=== PATIENT | male | born 1980 | race Caucasian/White ===

== ENCOUNTER 2022-07-04 18:09 | Emergency (ER) | payer MEDICAID ==
[~2022-07-04] VITALS: Ht 170.2 cm; Wt 90.9 kg
--- NOTE | 2022-07-04 19:01 | NUR ---
Pt moved to room 15
--- NOTE | 2022-07-04 19:18 | NUR ---
pt to ct
[2022-07-04 19:26] LABS: BASOPHILS # (AUTO) 0.1 X10'3 (0-0.2); BASOPHILS % (AUTO) 0.7 % (0-1); EOSINOPHILS # (AUTO) 0.2 X10'3 (0-0.9); EOSINOPHILS % (AUTO) 2.1 % (0-6); HEMATOCRIT 46.6 % (42.0-52.0); HEMOGLOBIN 15.8 g/dl (14.0-17.9); LYMPHOCYTES # (AUTO) 4.4 X10'3 (1.1-4.8); LYMPHOCYTES % (AUTO) 47.5 % (21-51); MEAN CORPUSCULAR HEMOGLOBIN 30.1 PG (27.0-31.0); MEAN CORPUSCULAR VOLUME 88.5 FL (78-98); MEAN PLATELET VOLUME 7.4 FL (7.4-10.4); MONOCYTES # (AUTO) 0.8 X10'3 (0-0.9); MONOCYTES % (AUTO) 8.5 % (2-12); NEUTROPHILS # (AUTO) 3.8 X10'3 (1.8-7.7); NEUTROPHILS % (AUTO) 41.2 % (42-75); PLATELET COUNT 187 X10'3 (140-440); RED BLOOD COUNT 5.27 X10'6 (4.70-6.10); RED CELL DISTRIBUTION WIDTH 13.5 % (11.5-14.5); WHITE BLOOD COUNT 9.2 X10'3 (4.5-11.0)
[2022-07-04] MEDS ORDERED: meclizine 12.5mg tablet PO ONE (19:30)
[2022-07-04] MEDS ORDERED: hyDRALAzine 10mg tablet PO ONE (19:30)
[2022-07-04] MEDS ORDERED: hyDRALAzine 10mg tablet PO SCH (19:30)
[2022-07-04] MEDS ORDERED: lisinopril 10 MG tablet PO ONE (19:30)
[2022-07-04] MEDS ORDERED: cloNIDine 0.1 MG/24 HOUR patch (7 day patch) TD ONE (19:35)
[2022-07-04] MEDS ORDERED: LISI40TA13 PO (19:36)
[2022-07-04 19:37] LABS: ALANINE AMINOTRANSFERASE 35 U/L (12-78); ALBUMIN 4.1 G/DL (3.4-5.0); ALKALINE PHOSPHATASE 71 IU/L (46-116); ANION GAP 7 (8-16); ASPARTATE AMINO TRANSFERASE 25 U/L (10-37); BILIRUBIN,TOTAL 0.4 MG/DL (0.1-1.0); BLOOD UREA NITROGEN 14 MG/DL (7-18); BUN/CREATININE RATIO 15.6 (5.4-32.0); CHLORIDE 103 MMOL/L (99-107); GLUCOSE 137 MG/DL (70-104); POTASSIUM 3.7 MMOL/L (3.5-5.1); SODIUM 141 MMOL/L (135-145); TOTAL CARBON DIOXIDE 31.3 MMOL/L (24-32); TOTAL PROTEIN 8.1 G/DL (6.4-8.2); eGFR > 90 ML/MIN
[2022-07-04 19:39] LABS: ETHANOL < 0.010 GM/DL (0.0-0.010)
[2022-07-04 19:58] LABS: CLARITY,URINE CLEAR (Clear); COLOR,URINE YELLOW (Yellow); GLUCOSE, URINE NEGATIVE (Neg); KETONES,URINE NEGATIVE (Neg); LEUKOCYTE ESTERASE ,URINE NEGATIVE (Neg); NITRITES, URINE NEGATIVE (Neg); OCCULT BLOOD,URINE NEGATIVE (Neg); PROTEIN,URINE TRACE mg/dl (Neg); UROBILINOGEN,URINE 0.2 E.U/dL (0.2-1.0)
[2022-07-04 20:03] LABS: UA COLLECTION TYPE CLN CATCH MIDSTREAM
[2022-07-04 20:13] LABS: URINE AMPHETAMINE SCREEN POSITIVE (Neg); URINE BARBITUATE SCREEN NEGATIVE (Neg); URINE BENZODIAZEPINES SCREEN NEGATIVE (Neg); URINE COCAINE SCREEN NEGATIVE (Neg); URINE METHADONE SCREEN POSITIVE (Neg); URINE OPIATE SCREEN NEGATIVE (Neg); URINE PHENCYCLIDINE SCREEN NEGATIVE (Neg)
[2022-07-04 20:22] LABS: AMORPHOUS PHOSPHATES 2+; BACTERIA,URINE NONE SEEN /HPF (Neg); MUCUS STRANDS NONE SEEN /LPF (Neg); RBC,URINE NONE SEEN /HPF (0-2); SQUAMOUS EPITHELIAL CELL,UR NONE SEEN /LPF (FEW); WBC,URINE NONE SEEN /HPF (0-4)
[2022-07-04 20:23] LABS: FINE GRANULAR CAST 0-3 /LPF (NEGATIVE)
[2022-07-04 20:24] VITALS: BP 166/100
== END 2022-07-04 20:27 ==
LOC: ER 18:10
DX: R11.0 Nausea (principal); R53.83 Other fatigue; I10 Essential (primary) hypertension; F17.200 Nicotine dependence, unspecified, uncomplicated; F15.90 Other stimulant use, unspecified, uncomplicated; Z86.69 Personal history of other diseases of the nervous system and sense organs; Z56.0 Unemployment, unspecified; Z79.899 Other long term (current) drug therapy
CPT/HCPCS: 36415; 70450; 80053; 80305; 80320; 81001; 82948; 85025; 93005; 99285; J8597

== ENCOUNTER 2023-07-15 01:41 | Emergency (ER) | payer MEDICAID ==
[~2023-07-15] VITALS: Ht 170.2 cm; Wt 104.5 kg
[2023-07-15 01:56] VITALS: TEMP 98.3
[2023-07-15] MEDS: amLODIPine 5mg tablet PO ONE (02:29)
[2023-07-15] MEDS: hydrALAZINE 25 MG tablet PO ONE (02:30)
[2023-07-15 03:14] VITALS: BP 180/106; PULSE 81; RESP 14; O2SAT 99
== END 2023-07-15 03:30 | disposition home or self-care (01) ==
LOC: ER 01:42
DX: F11.99 Opioid use, unspecified with unspecified opioid-induced disorder (principal); I10 Essential (primary) hypertension
CPT/HCPCS: 99283

== ENCOUNTER 2023-12-14 07:38 | Emergency (ER) | payer MEDICAID ==
[~2023-12-14] VITALS: Ht 170.2 cm; Wt 89.5 kg
[2023-12-14] MEDS: TETanus/Pertussis (Acell)/Diphther VAC/PF (Tdap-Adult) 0.5ml syringe IMVAC ONE (08:14)
[2023-12-14] MEDS: LIDOcaine 1% W/epiNEPHrine 1:100,000 20ml vial SQ ONE (08:40)
[2023-12-14 08:59] VITALS: BP 160/80; PULSE 75; RESP 15; O2SAT 97
[2023-12-14 09:04] VITALS: TEMP 97.8
== END 2023-12-14 09:04 | disposition home or self-care (01) ==
LOC: ER 07:39
DX: S61.211A Laceration without foreign body of left index finger without damage to nail, initial encounter (principal); Z56.0 Unemployment, unspecified; I10 Essential (primary) hypertension; F15.90 Other stimulant use, unspecified, uncomplicated; X58.XXXA Exposure to other specified factors, initial encounter; Y93.89 Activity, other specified; Y92.89 Other specified places as the place of occurrence of the external cause; Y99.8 Other external cause status
CPT/HCPCS: 12001; 90471; 90715; 99283; A6402; A6449

== ENCOUNTER 2023-12-16 02:41 | Emergency (ER) | payer MEDICAID ==
[~2023-12-16] VITALS: Ht 170.2 cm; Wt 81.8 kg
[2023-12-16 02:45] VITALS: TEMP 97.2
[2023-12-16] MEDS: DOXYCYCLINE 100MG CAPSULE PO STA (04:19)
[2023-12-16] MEDS: ceFAZolin 1gm IM kit IM ONE (04:19)
[2023-12-16] MEDS: ondansetron 4mg rapidly disintigrating tab PO ONE (04:20)
[2023-12-16 04:21] VITALS: BP 140/88; PULSE 93; O2SAT 98
[2023-12-16] MEDS: HYDROcodone/acetaminophen 10/325mg tab PO ONE (04:27)
[2023-12-16] MEDS ORDERED: CEPH-585 PO (04:39)
[2023-12-16] MEDS ORDERED: DOXY-356 PO (04:39)
[2023-12-16 04:48] VITALS: RESP 15
== END 2023-12-16 04:57 | disposition home or self-care (01) ==
LOC: ER 02:42
DX: L03.114 Cellulitis of left upper limb (principal); F15.90 Other stimulant use, unspecified, uncomplicated; I10 Essential (primary) hypertension
CPT/HCPCS: 73130; 96372; 99284; J0690

== ENCOUNTER 2024-05-24 09:56 | Emergency (ER) | payer MEDICAID ==
[~2024-05-24] VITALS: Ht 172.7 cm; Wt 95.0 kg
[2024-05-24] MEDS ORDERED: PROM25TA14 PO (12:08)
[2024-05-24] MEDS ORDERED: AZIT250T89 PO (12:08)
[2024-05-24] MEDS ORDERED: PRED20TA PO (12:08)
[2024-05-24 12:16] VITALS: BP 148/86; PULSE 80; RESP 16; TEMP 98.8; O2SAT 98
== END 2024-05-24 12:18 | disposition home or self-care (01) ==
LOC: ER 09:57
DX: J22 Unspecified acute lower respiratory infection (principal); I10 Essential (primary) hypertension; F15.90 Other stimulant use, unspecified, uncomplicated; Z56.0 Unemployment, unspecified
CPT/HCPCS: 71045; 99283

== ENCOUNTER 2025-03-01 19:44 | Emergency (ER) | payer MEDICAID ==
[~2025-03-01] VITALS: Ht 170.2 cm; Wt 98.0 kg
[2025-03-01 20:06] VITALS: PULSE 88; RESP 15; TEMP 96.8; O2SAT 99
[2025-03-01 20:48] VITALS: BP 175/89
--- NOTE | 2025-03-01 21:14 | Physician Documentation ---
History of Present Illness ~ Chief Complaint: Medical Clearance Stated Complaint: MED CLEARENCE Time Seen by MD: 19:54 Primary Medical Doctor: NONE HPI 44-year-old male that presents to the emergency department in custody of [facility]. Patient has presented for medical clearance so that he can be incarcerated. Patient reports that he last used methamphetamine a pproximately 24 hours ago and he smokes fentanyl daily. Patient reports that he has been diagnosed with hypertension previously. [facility] staff [facility] the [facility] were concerned because his patient's blood pressures greater than 180. Patient's blood pressure here in the emergency department and still approximately 180 patient is asymptomatic and refusing any interventions. Patient was offered clonidine reduce his blood pressure. Patient is refusing that at this time. Patient's vital signs are otherwise appropriate patient is without symptoms at this time. Patient is medically cleared to be incarcerated with [facility]. Tetanus within 5 years?: Yes Medication Reconciliation Allergies: Coded Allergies: No Known Allergies (Unverified , 03/01/25) Past Medical History Past Medical History: *EQUITIES TRADER*, Seizures, Hypertension Past Surgical History: noncontributory Drug Use: methamphetamine Lives with: S/O Lives In: Home Occupation: unemployed Review of Systems ROS As stated above in the HPI, otherwise all systems are reviewed and negative. Physical Exam Vital Signs: Temperature: 96.8, Source: Temporal, Heart Rate: 88, Respiratory Rate: 15, BP: 175/89, Pulse Oximetry: 99, Weight: 98.000 Physical Exam VITALS: Reviewed and as above. GENERAL: Alert, no apparent distress. HEENT: Normocephalic, atraumatic, PERRL, EOMI, dry mucosa, no erythema RESPIRATORY: Lungs clear, normal breath sounds, no respiratory distress. CHEST: No accessory muscle use, no retractions CV: Regular rate, rhythm, no edema, no murmur, No: JVD GI: Soft, non-tender, bowels sounds present, no rebound, guarding, or rigidity BACK: No CVA tenderness, or swelling MUSCULOSKELETAL No deformities, no edema SKIN: Warm and dry, no rash NEURO: Oriented x4, No motor or sensory deficit PSYCH: Normal mood and affect, no agitation Progress Results/Orders Results/Orders Completed Orders - VARSHA STRONGP Clonidine Tablet (Catapres Tablet) (03/01/25 20:40) Vital Signs 03/01/25 03/01/25 20:06 20:48 Temp 96.8 Pulse 88 Resp 15 B/P (MAP) 180/110 175/89 (117) Pulse Ox 99 Medical Decision Making Additional information obtaine: other Findings 44-year-old male that presents to the emergency department in custody of [facility]. Patient has presented for medical clearance so that he can be incarcerated. Patient reports that he last used methamphetamine approximately 24 hours ago and he smokes fentanyl daily. Patient reports that he has been diagnosed with hypertension previously. Medical staff at the penitentiary were concerned because his patient's blood pressures greater than 180. Patient's blood pressure here in the emergency department and still approximately 180 patient is asymptomatic and refusing any interventions. Patient was offered clonidine reduce his blood pressure. Patient is refusing that at this time. Patient's vital signs are otherwise appropriate patient is without symptoms at this time. Patient is medically cleared to be incarcerated with [place] police department. Differential Dx:Considerations: Include: Intoxication-Alcohol, Intoxication- Other drug, Personality disorder, Substance abuse disorder, Acute delirium, Closed head injury, Cervical spine injury, Skull fracture, Fracture(s), Abrasion, Contusion, Foreign body, Hematoma, Laceration, Alcohol withdrawl syndrom, Encephalopathy, Hepatitis, Medically stable, Other Departure Disposition: 01 HOME / SELF CARE / HOMELESS Impression: Primary Impression: General medical exam Condition: Stable Discharge Instructions: Medical Screening Exam Additional Instructions: 44-year-old male that presents to the emergency department in custody of [facility]. Patient has presented for medical clearance so that he can be incarcerated. Patient reports that he last used methamphetamine approximately 24 hours ago and he smokes fentanyl daily. Patient reports that he has been diagnosed with hypertension previously. Medical staff at the penitentiary were concerned because his patient's blood pressures greater than 180. Patient's blood pressure here in the emergency department and still approximately 180 patient is asymptomatic and refusing any interventions. Patient was offered clonidine reduce his blood pressure. Patient is refusing that at this time. Patient's vital signs are otherwise appropriate patient is without symptoms at this time. Patient is medically cleared to be incarcerated with [place] police department. Referrals: NO PRIMARY CARE PROVIDER (PCP) Education Educated: Patient Educated regarding: diagnosis, treatment, need for follow up Signature Scribe Signature: A Attestation: Scribed for Norberto,Varsha A Saw Filer by CHANDNI Patrick . 03/01/25 21:14 VARSHA STRONG Mar 01, 2025 21:14
== END 2025-03-01 21:34 | disposition home or self-care (01) ==
LOC: ER 19:44
DX: Z00.00 Encounter for general adult medical examination without abnormal findings (principal); I10 Essential (primary) hypertension; F15.90 Other stimulant use, unspecified, uncomplicated
CPT/HCPCS: 99283